=== PATIENT | male | born 1975 | race Caucasian/White ===

== ENCOUNTER 2017-07-17 05:21 | Emergency (ER) | payer MEDICAID ==
[2017-07-17] MEDS ORDERED: Sodium Chloride 0.9% 10 ML Syringe FLUSH PRN (06:06)
[2017-07-17] MEDS ORDERED: Ketorolac 30 MG/ML SDV IVPUSH ONE (06:07)
[2017-07-17] MEDS ORDERED: diphenhydrAMINE 50 MG/ML SDV IVPUSH ONE (06:08)
[2017-07-17] MEDS ORDERED: Prochlorperazine 10 MG/2 ML SDV IVPUSH ONE (06:08)
--- NOTE | 2017-07-17 06:11 | EDM.PDOC ---
ED HPI GENERAL MEDICAL PROBLEM - General Chief Complaint: Headache Stated Complaint: ILLNESS Time Seen by Provider: 07/17/17 05:59 Source of Information: Reports: Patient, RN Notes Reviewed History Limitations: Reports: No Limitations - History of Present Illness INITIAL COMMENTS - FREE TEXT/NARRATIVE: 41-year-old gentleman presents emergency department day complaint of headache, he states he has chronic daily headaches this particular one has been going on since April however it got worse over the last 24-48 hours he does have photophobia phonophobia describes the headache is obtained type around his head one side is greater than the other he does admit to having a fever yesterday however the fever broke this morning experiencing nausea no vomiting Headache Pain Score (Numeric/FACES): 7 - Related Data Allergies Allergy/AdvReac Type Severity Reaction Status Date / Time bee venom protein (honey bee) Allergy Anaphylactic Verified 07/17/17 05:43 Shock Penicillins Allergy Cannot Verified 07/17/17 05:43 Remember Home Meds: Home Meds Acetaminophen/Caffeine [Excedrin Tension Headache] 2 tab PO Q6HR 07/17/17 [ History] Amitriptyline [Elavil] 25 mg PO BEDTIME 07/17/17 [History] EPINEPHrine [Epinephrine] 0.3 ml SQ ASDIRECTED PRN 07/17/17 [History] Past Medical History HEENT History: Reports: Other (See Below) Other HEENT History: tonsil stones Gastrointestinal History: Reports: Irritable Bowel Syndrome Musculoskeletal History: Reports: Fracture Neurological History: Reports: Headaches, Chronic Other Endocrine/Metabolic History: hyper/hypoglycemic - Infectious Disease History Infectious Disease History: Reports: Chicken Pox - Past Surgical History Other HEENT Surgeries/Procedures: sinus surgery Social & Family History - Tobacco Use Smoking Status *Q: Never Smoker - Caffeine Use Caffeine Use: Reports: Tea - Recreational Drug Use Recreational Drug Use: No ED ROS GENERAL - Review of Systems Review Of Systems: See Below Constitutional: Reports: Fever HEENT: Reports: Ear Pain, Eye Pain. Denies: Vision Change Respiratory: Reports: No Symptoms Cardiovascular: Reports: No Symptoms GI/Abdominal: Reports: Nausea. Denies: Vomiting : Reports: No Symptoms Musculoskeletal: Reports: No Symptoms Skin: Reports: No Symptoms Neurological: Reports: Headache - Physical Exam Exam: See Below Exam Limited By: No Limitations General Appearance: Alert Eye Exam: Bilateral Eye: Normal Fundi, Normal Inspection, PERRL Ears: Normal External Exam Nose: Normal Inspection, Normal Mucosa, No Blood Throat/Mouth: Normal Inspection, Normal Lips, Normal Teeth, Normal Gums, Normal Oropharynx, Normal Voice, No Airway Compromise Head Exam: Atraumatic, Normocephalic Neck: Normal Inspection, Supple, Non-Tender, Full Range of Motion Respiratory/Chest: No Respiratory Distress, Lungs Clear, Normal Breath Sounds, No Accessory Muscle Use Cardiovascular: Regular Rate, Rhythm, No Murmur GI/Abdominal: Soft, Non-Tender Course - Vital Signs Last Recorded V/S: Last Vital Signs Temp 99.6 F 07/17/17 05:40 Pulse 110 H 07/17/17 05:40 Resp 18 07/17/17 05:40 BP 144/79 H 07/17/17 05:40 Pulse Ox 93 L 07/17/17 05:40 - Orders/Labs/Meds Orders: Active Orders 24 hr Category Date Time Status Peripheral IV Care [RC] . DIRECTED Care 07/17/17 06:07 Active Lactated Ringers [Ringers, Lactated] 1,000 ml Med 07/17/17 06:15 Active IV .BOLUS Sodium Chloride 0.9% [Saline Flush] Med 07/17/17 06:06 Active 10 ml FLUSH ASDIRECTED PRN Peripheral IV Insertion Adult [OM.PC] Urgent Oth 07/17/17 06:06 Ordered Medication Orders Lactated Ringer's (Ringers, Lactated) 1,000 mls @ 999 mls/hr IV .BOLUS ZAINAB Last Admin: 07/17/17 06:21 Dose: 999 mls/hr Sodium Chloride (Saline Flush) 10 ml FLUSH ASDIRECTED PRN PRN Reason: Keep Vein Open Labs: Laboratory Tests 07/17/17 07/17/17 Range/Units 06:19 06:19 WBC 10.7 (4.5-11.0) K/uL RBC 5.19 (4.30-5.90) M/uL Hgb 14.8 (12.0-15.0) g/dL Hct 43.7 (40.0-54.0) % MCV 84 (80-98) fL MCH 29 (27-31) pg MCHC 34 (32-36) % Plt Count 249 (150-400) K/uL Neut % (Auto) 86 H (36-66) % Lymph % (Auto) 8 L (24-44) % [place] % (Auto) 6 (2-6) % Eos % (Auto) 0 L (2-4) % Baso % (Auto) 0 (0-1) % Sodium 139 L (140-148) mmol/L Potassium 3.8 (3.6-5.2) mmol/L Chloride 99 L (100-108) mmol/L Carbon Dioxide 31 (21-32) mmol/L Anion Gap 12.8 (5.0-14.0) mmol/L BUN 10 (7-18) mg/dL Creatinine 1.2 (0.8-1.3) mg/dL Est Cr Clr Drug Dosing 86.28 mL/min Estimated GFR (MDRD) > 60 (>60) Glucose 102 (74-106) mg/dL Calcium 9.3 (8.5-10.1) mg/dL C-Reactive Protein 5.75 H (0.0-0.3) mg/dL Meds: Medications Generic Name Dose Route Start Last Admin Trade Name Freq PRN Reason Stop Dose Admin Lactated Ringer's 1,000 mls @ 999 mls/hr 07/17/17 06:15 07/17/17 06:21 Ringers, Lactated IV 999 mls/hr .BOLUS ZAINAB Administration Sodium Chloride 10 ml 07/17/17 06:06 Saline Flush FLUSH ASDIRECTED PRN Keep Vein Open Discontinued Medications Generic Name Dose Route Start Last Admin Trade Name Freq PRN Reason Stop Dose Admin Diphenhydramine HCl 25 mg 07/17/17 06:08 07/17/17 06:27 Benadryl IVPUSH 07/17/17 06:09 25 mg ONETIME ONE Administration Ketorolac Tromethamine 30 mg 07/17/17 06:07 07/17/17 06:25 Toradol IVPUSH 07/17/17 06:08 30 mg ONETIME ONE Administration Prochlorperazine Edisylate 5 mg 07/17/17 06:08 07/17/17 06:22 Compazine IVPUSH 07/17/17 06:09 5 mg ONETIME ONE Administration Departure - Departure Time of Disposition: 07:02 Disposition: Home, Self-Care 01 Condition: Good Clinical Impression: Head ache Qualifiers: Headache type: unspecified Headache chronicity pattern: chronic headache - Discharge Information Referrals: PCP,None [Primary Care Provider] - Forms: ED Department Discharge Additional Instructions: Please follow-up with your primary care recommend consultation with neurology, call return to the emergency department worsening of symptoms - My Orders Last 24 Hours: My Active Orders 07/17/17 06:06 Sodium Chloride 0.9% [Saline Flush] 10 ml FLUSH ASDIRECTED PRN Peripheral IV Insertion Adult [OM.PC] Urgent 07/17/17 06:07 Peripheral IV Care [RC] . DIRECTED 07/17/17 06:15 Lactated Ringers [Ringers, Lactated] 1,000 ml IV .BOLUS - Assessment/Plan Last 24 Hours: My Active Orders 07/17/17 06:06 Sodium Chloride 0.9% [Saline Flush] 10 ml FLUSH ASDIRECTED PRN Peripheral IV Insertion Adult [OM.PC] Urgent 07/17/17 06:07 Peripheral IV Care [RC] . DIRECTED 07/17/17 06:15 Lactated Ringers [Ringers, Lactated] 1,000 ml IV .BOLUS Plan: Assessment Acuity = chronic Site and laterality = daily headache Etiology = unclear etiology Manifestations = none Location of injury = Home Lab values = CBC, BMP unremarkable Plan He had good relief of his headache pain combination Toradol, Compazine, Benadryl and 1 L of lactated Ringer's he is going to follow-up with his primary care and consider consultation with neurology Patient was in agreement with the plan all questions were answered, they were instructed to return to the emergency department or call for worsening symptoms. This note was dictated using [employer] voice recognition software please call with any questions.
[2017-07-17] MEDS ORDERED: Lactated Ringers 1,000 ML IV SCH (06:15)
[2017-07-17 07:12] VITALS: BP 129/75
== END 2017-07-17 07:13 | disposition home or self-care (01) ==
LOC: JP.ED 05:21
DX: R51 Headache (principal); Z88.0 Allergy status to penicillin; Z91.030 Bee allergy status
CPT/HCPCS: 36415; 80048; 85025; 86140; 96361; 96374; 96375; 99284; J0780; J1200; J1885; J7120

== ENCOUNTER 2017-07-19 10:26 | Emergency (ER) | payer MEDICAID ==
--- NOTE | 2017-07-19 11:03 | EDM.PDOC ---
ED HPI GENERAL MEDICAL PROBLEM - General Chief Complaint: Neurological Problem Stated Complaint: LEFT SIDE OF FACE IN NUMB Time Seen by Provider: 07/19/17 10:50 Source of Information: Reports: Patient, Family, Old Records, RN History Limitations: Reports: No Limitations - History of Present Illness INITIAL COMMENTS - FREE TEXT/NARRATIVE: 41 yo male here after a couple of syncopal spells today. He has had some diarrhea for the past 3 days as have some other family members. This morning while sitting in a chair he passed out for about 30 seconds. He had some warning before hand. He could feel his heart pounding in his head and things got distant before-hand. After he awoke he felt very relaxed. No chest pain or nausea. Has a hx of frequent HARP's, but does not have one today. No hx of CAD or seizures. No new meds or dose changes. Onset: Today Onset Date: 07/19/17 Duration: Hour(s):, Improving Location: Reports: Generalized Quality: Reports: Other (no pain) Severity: Moderate Improves with: Reports: Rest (lying supine) Worsens with: Reports: None Context: Reports: Other (? related to recent diarrhea vs. HARP's that are worse over the past month) Associated Symptoms: Reports: Headaches (not today.), Syncope. Denies: Confusion, Chest Pain, Cough, Diaphoresis, Fever/Chills, Nausea/Vomiting, Seizure, Shortness of Breath Treatments [employer]: Reports: Other (see below) (none) - Related Data Allergies Allergy/AdvReac Type Severity Reaction Status Date / Time bee venom protein (honey bee) Allergy Anaphylactic Verified 07/19/17 10:36 Shock Penicillins Allergy Cannot Verified 07/19/17 10:36 Remember Home Meds: Home Meds Acetaminophen/Caffeine [Excedrin Tension Headache] 2 tab PO Q6HR 07/17/17 [ History] Amitriptyline [Elavil] 25 mg PO BEDTIME 07/17/17 [History] EPINEPHrine [Epinephrine] 0.3 ml SQ ASDIRECTED PRN 07/17/17 [History] Past Medical History HEENT History: Reports: Other (See Below) Other HEENT History: tonsil stones Gastrointestinal History: Reports: Irritable Bowel Syndrome Musculoskeletal History: Reports: Fracture Neurological History: Reports: Headaches, Chronic Other Endocrine/Metabolic History: hyper/hypoglycemic - Infectious Disease History Infectious Disease History: Reports: Chicken Pox - Past Surgical History Other HEENT Surgeries/Procedures: sinus surgery Social & Family History - Tobacco Use Smoking Status *Q: Unknown Ever Smoked - Caffeine Use Caffeine Use: Reports: Tea - Recreational Drug Use Recreational Drug Use: No ED ROS GENERAL - Review of Systems Review Of Systems: See Below Constitutional: Reports: No Symptoms HEENT: Reports: No Symptoms Respiratory: Reports: No Symptoms Cardiovascular: Reports: Syncope. Denies: Chest Pain, Dyspnea on Exertion Endocrine: Reports: No Symptoms GI/Abdominal: Reports: Diarrhea (x 3 days). Denies: Abdominal Pain, Black Stool , Bloody Stool, Constipation, Difficulty Swallowing, Distension, Flatus, Hematemesis, Hematochezia, Melena, Nausea, Stool Incontinence, Vomiting : Reports: No Symptoms Musculoskeletal: Reports: No Symptoms Skin: Reports: No Symptoms Neurological: Reports: Headache (not today, most days however), Numbness (L face and tongue, getting better), Syncope (this morning at home, later in the car driving here.). Denies: Dizziness, Seizure Psychiatric: Reports: No Symptoms ED EXAM, NEURO - Physical Exam Exam: See Below Exam Limited By: No Limitations General Appearance: Alert, WD/WN, No Apparent Distress Eye Exam: Bilateral Eye: EOMI, Normal Inspection, PERRL Ears: Normal External Exam, Normal Canal, Hearing Grossly Normal, Normal TMs Nose: Normal Inspection, Normal Mucosa, No Blood Throat/Mouth: Normal Inspection, Normal Lips, Normal Oropharynx, Normal Voice, No Airway Compromise Head Exam: Atraumatic, Normocephalic Neck: Normal Inspection, Supple Respiratory/Chest: No Respiratory Distress, Lungs Clear, Normal Breath Sounds, No Accessory Muscle Use Cardiovascular: Regular Rate, Rhythm, No Edema GI/Abdominal: Normal Bowel Sounds, Soft, Non-Tender, No Distention Neurological: Alert, Normal Mood/Affect, CN II-XII Intact, No Motor/Sensory Deficits, Oriented x 3 Back Exam: Normal Inspection. No: CVA Tenderness (R), CVA Tenderness (L) Extremities: Normal Inspection, Normal Range of Motion, Non-Tender, No Pedal Edema Psychiatric: Normal Affect, Normal Mood Skin Exam: Warm, Dry, Intact, Normal Color, No Rash EKG INTERPRETATION EKG Date: 07/19/17 Time: 10:50 Rhythm: NSR Rate (Beats/Min): 72 [place]: Normal P-Wave: Present QRS: Normal ST-T: Normal QT: Normal Comparison: NA - No Prior EKG Course - Vital Signs Text/Narrative:: Orthostatic vitals-normal Last Recorded V/S: Last Vital Signs Temp 35.2 C 07/19/17 11:00 Pulse 77 07/19/17 11:00 Resp 18 07/19/17 11:00 BP 141/79 H 07/19/17 11:00 Pulse Ox 98 07/19/17 11:00 Orthostatic Blood Pressure [ 163/108 Standing] Orthostatic Blood Pressure [ 131/89 Sitting] Orthostatic Blood Pressure [ 139/86 Supine] - Orders/Labs/Meds Orders: Active Orders 24 hr Category Date Time Status Cardiac Monitoring [RC] .As Directed Care 07/19/17 10:46 Active EKG Documentation Completion [RC] ASDIRECTED Care 07/19/17 10:46 Active Orthostatic Vital Signs [RC] ASDIRECTED Care 07/19/17 10:47 Active POC Labs [RC] ASDIRECTED Care 07/19/17 10:46 Active EKG 12 Lead [EK] Routine Ther 07/19/17 10:46 Ordered Labs: Laboratory Tests 07/19/17 Range/Units 11:25 Sodium 142 (140-148) mmol/L Potassium 4.0 (3.6-5.2) mmol/L Chloride 103 (100-108) mmol/L Carbon Dioxide 31 (21-32) mmol/L Anion Gap 7.8 (5.0-14.0) mmol/L BUN 10 (7-18) mg/dL Creatinine 1.1 (0.8-1.3) mg/dL Est Cr Clr Drug Dosing 94.13 mL/min Estimated GFR (MDRD) > 60 (>60) Glucose 107 H (74-106) mg/dL Calcium 9.4 (8.5-10.1) mg/dL Meds: Medications Discontinued Medications Generic Name Dose Route Start Last Admin Trade Name Freq PRN Reason Stop Dose Admin Acetaminophen 1,000 mg 07/19/17 11:58 Tylenol Extra Strength PO 07/19/17 11:59 ONETIME ONE - Radiology Interpretation Free Text/Narrative:: Negative head CT CT Results Date: 07/19/17 CT Results Time: 11:48 Departure - Departure Time of Disposition: 12:01 Disposition: Home, Self-Care 01 Condition: Fair Clinical Impression: Syncope Qualifiers: Syncope type: unspecified Qualified Code(s): R55 - Syncope and collapse - Discharge Information Referrals: PCP,None [Primary Care Provider] - Forms: ED Department Discharge Additional Instructions: Keep your appt today with your primary for today. No driving today. - My Orders Last 24 Hours: My Active Orders 07/19/17 10:46 Cardiac Monitoring [RC] .As Directed EKG Documentation Completion [RC] ASDIRECTED POC Labs [RC] ASDIRECTED EKG 12 Lead [EK] Routine 07/19/17 10:47 Orthostatic Vital Signs [RC] ASDIRECTED - Assessment/Plan Last 24 Hours: My Active Orders 07/19/17 10:46 Cardiac Monitoring [RC] .As Directed EKG Documentation Completion [RC] ASDIRECTED POC Labs [RC] ASDIRECTED EKG 12 Lead [EK] Routine 07/19/17 10:47 Orthostatic Vital Signs [RC] ASDIRECTED
--- NOTE | 2017-07-19 11:49 | CT ---
Head wo Cont HISTORY: Worsening headaches. COMPARISON: April 2010. TECHNIQUE: Noncontrast enhanced axial cuts were obtained of the brain. Total DLP: 646. FINDINGS:There is no cerebral or subdural hemorrhage. There is no mass effect or edema. The ventricle s and CSF spaces are appropriate for age. No space occupying lesions are demonstrated. The orbital st ructures are unremarkable. The sinuses demonstrate normal aeration. IMPRESSION: Stable negative exam.
[2017-07-19] MEDS ORDERED: Acetaminophen 500 MG Tab PO ONE (11:58)
[2017-07-19 12:20] VITALS: BP 119/78
== END 2017-07-19 12:44 | disposition home or self-care (01) ==
LOC: JP.ED 10:26
DX: R55 Syncope and collapse (principal); Z91.030 Bee allergy status; Z88.0 Allergy status to penicillin
CPT/HCPCS: 36415; 70450; 80048; 82962; 93005; 99285; A9270

== ENCOUNTER 2018-04-17 09:24 | Day surgery (SDC) | payer MEDICAID ==
[~2018-04-17 09:24] MED LIST: Bupivacaine 0.5% 50 ML MDV ONE; Lidocaine 0.5% 50 ML SDV ONE; Lidocaine 1% with EPINEPHrine 1:100,000 50 ML MDV ONE
[2018-04-17] MEDS ORDERED: Dextrose 5%-Lactated Ringers 1,000 ML IV SCH (10:00)
[2018-04-17] MEDS ORDERED: Propofol 200 MG/20 ML SDV ONE ×2 (10:25→10:27)
[2018-04-17] MEDS ORDERED: fentaNYL 100 MCG/2 ML SDV ONE (10:25)
[2018-04-17] MEDS ORDERED: Midazolam 1 MG/ML 2 ML SDV ONE (10:26)
[2018-04-17] MEDS ORDERED: Clindamycin Phosphate 900 MG in Sodium Chloride 0.9% 100 ML IV ONE (11:00)
[2018-04-17] MEDS ORDERED: Acetaminophen/HYDROcodone 325-5 MG Tab PO PRN (12:16)
[2018-04-17 12:52] VITALS: BP 112/71
--- NOTE | 2018-04-18 07:37 | OR ---
DATE OF PROCEDURE: 04/17/2018 PREOPERATIVE DIAGNOSIS: Incarcerated umbilical hernia. POSTOPERATIVE DIAGNOSIS: Incarcerated with fat umbilical hernia. PROCEDURE: Repair of umbilical hernia with a 6.4 cm in diameter Ventralex mesh patch with straps. SURGEON: Brian Champion MD ANESTHESIA: IV anesthesia with monitored anesthesia care. INDICATION: This 42-year-old white male has an umbilical hernia, and I cannot reduce it. He denies signs or symptoms suggestive of bowel involvement. I counseled him for repair of this, probably with mesh, including risks, alternatives, and he gave his informed consent to proceed. DESCRIPTION OF PROCEDURE: The patient was placed supine on the operating room table. IV anesthesia was administered by the Anesthesia Service. His abdomen was prepped and draped in the usual sterile fashion. Time-out was held. Lidocaine 1% with epinephrine in a 50:50 mix with 0.5% Marcaine was infiltrated about the umbilicus. An infraumbilical semicircular incision was made. This was carried deep to the fascia. The umbilicus was then encircled and the umbilical skin was divided from the underlying hernia sac. We encountered fat, which we could not reduce back into the abdominal cavity. The fat was excised and sent to the laboratory. We obtained a 6.4 cm in diameter Ventralex mesh patch with straps. This was placed down underneath the fascia. The straps were pulled up bringing the mesh nicely against the posterior aspect of the anterior abdominal wall. The straps were cut to appropriate length and anchored with 2-0 Vicryl to the anterior fascia. The fascia was closed over the mesh with a running stitch of 2-0 Vicryl. The stitch was also used to anchor the umbilical skin to the underlying fascia. 4-0 Vicryl using a subcuticular stitch was placed to approximate the skin. Dermabond was applied. He tolerated the procedure well and was brought to the recovery room in good condition. Brian Champion MD /[id number]
== END 2018-04-17 13:20 | disposition home or self-care (01) ==
LOC: JP.SDS 09:24
PROVIDERS: ATTEND Surgery
DX: K42.0 Umbilical hernia with obstruction, without gangrene (principal); Z88.0 Allergy status to penicillin; Z91.030 Bee allergy status
CPT/HCPCS: 49587; A9270; C1781; J2250; J2704; J3010; J3490; J7030; J7042; 88302

== ENCOUNTER 2019-03-29 07:34 | Emergency (ER) | payer MEDICAID ==
[2019-03-29 07:46] VITALS: BP 117/70; PULSE 66
--- NOTE | 2019-03-29 08:17 | EDM.PDOC ---
ED HPI GENERAL MEDICAL PROBLEM - General Chief Complaint: Respiratory Problem Stated Complaint: COLD BREATHING DIFFICULITIES Time Seen by Provider: 03/29/19 08:00 Source of Information: Reports: Patient History Limitations: Reports: No Limitations - History of Present Illness INITIAL COMMENTS - FREE TEXT/NARRATIVE: 43-year-old male, usually healthy has a worsening cold over the past week. He was seen in the clinic yesterday, given a nebulizer and placed on doxycycline. He coughed all night, feels worse today, has developed some facial pressure and can't hear out of his left ear. No fevers or chills. No nausea or vomiting. Onset: Gradual Duration: Day(s): (7 days) Associated Symptoms: Reports: Cough, Malaise, Shortness of Breath, Weakness - Related Data Allergies Allergy/AdvReac Type Severity Reaction Status Date / Time bee venom protein (honey bee) Allergy Severe Anaphylactic Verified 03/29/19 07: 46 Shock Penicillins Allergy Cannot Verified 03/29/19 07:46 Remember Home Meds: Home Meds EPINEPHrine [Epinephrine] 0.3 ml SQ ASDIRECTED PRN 07/17/17 [History] Fluticasone Propionate [Flonase] 2 spray NS DAILY PRN 04/13/18 [History] Gabapentin [Neurontin] 100 mg PO DAILY 04/13/18 [History] SUMAtriptan 100 mg PO ONETIME PRN 04/13/18 [History] Acetaminophen [Tylenol Extra Strength] 1,000 mg PO BID PRN 04/17/18 [History] Melatonin 5 mg PO BEDTIME PRN 04/17/18 [History] Baclofen 10 mg PO TID 08/01/18 [History] Guaifenesin/Pseudoephedrne HCl [Mucinex D ER 600-60 mg Tablet] 1 tab PO Q12H 04/09 [History] Past Medical History HEENT History: Reports: Allergic Rhinitis, Other (See Below) Other HEENT History: tonsil stones, broken nose as child Respiratory History: Reports: Other (See Below) Other Respiratory History: recurrent bronchitis as child Gastrointestinal History: Reports: Irritable Bowel Syndrome Musculoskeletal History: Reports: Fracture, Other (See Below) Other Musculoskeletal History: fractured clavicle Neurological History: Reports: Headaches, Chronic, Migraines Other Neuro History: getting botox injections Other Endocrine/Metabolic History: hyper/hypoglycemic - Infectious Disease History Infectious Disease History: Reports: Chicken Pox - Past Surgical History Other HEENT Surgeries/Procedures: sinus surgery Social & Family History - Tobacco Use Smoking Status *Q: Never Smoker - Caffeine Use Caffeine Use: Reports: Soda, Tea - Recreational Drug Use Recreational Drug Use: No ED ROS GENERAL - Review of Systems Review Of Systems: See Below Constitutional: Reports: Malaise. Denies: Fever, Chills HEENT: Reports: Sinus Problem (Pressure in his sinuses), Other (Decreased hearing from the left ear) Respiratory: Reports: Shortness of Breath, Wheezing, Cough. Denies: Sputum Cardiovascular: Reports: No Symptoms GI/Abdominal: Denies: Nausea, Vomiting Skin: Reports: No Symptoms Neurological: Reports: Weakness, Other (Trouble sleeping). Denies: Headache ED EXAM, GENERAL - Physical Exam Exam: See Below Exam Limited By: No Limitations General Appearance: Alert, No Apparent Distress Eye Exam: Bilateral Eye: Normal Inspection Ears: Other (The right tympanic membrane is normal, the left has fluid behind it but is not inflamed or reddened) Throat/Mouth: Normal Inspection Head: Atraumatic Respiratory/Chest: No Respiratory Distress, Wheezing (A few scattered expiratory wheezes and rhonchi are heard especially with coughing) Neurological: Alert, Oriented Psychiatric: Flat Affect Skin Exam: Warm, Dry Course - Vital Signs Last Recorded V/S: Last Vital Signs Temp 97.0 F 03/29/19 07:45 Pulse 66 03/29/19 07:45 Resp 22 H 03/29/19 07:45 BP 117/70 03/29/19 07:45 Pulse Ox 100 03/29/19 07:45 - Re-Assessments/Exams Free Text/Narrative Re-Assessment/Exam: 03/29/19 08:15 Explained to the patient that this very likely is viral. He can continue the doxycycline he was prescribed, but we will add 60 mg of prednisone daily with his first meal and some benzonatate [place] for cough suppression. Increase activity as tolerated. Return if worsening. Departure - Departure Time of Disposition: 08:27 Disposition: Home, Self-Care 01 Condition: Good Clinical Impression: Bronchitis Left serous otitis media Qualifiers: Chronicity: acute Recurrence: non-recurrent Qualified Code(s): H65.02 - Acute serous otitis media, left ear - Discharge Information Instructions: Acute Bronchitis, Adult, [id number] Referrals: PCP,None [Primary Care Provider] - Forms: ED Department Discharge Care Plan Goals: Continue your current medications, and add 60 mg or 6 pills of prednisone daily for 5 consecutive days with your first meal. Use the benzonatate for cough suppression as directed if needed. Rest and fluids are important, increase activity as tolerated and consider rechecking in 2-3 days if not improving. You can always return sooner if worsening such as increased shortness of breath or persistent fever.
== END 2019-03-29 08:27 | disposition home or self-care (01) ==
LOC: JP.ED 07:34
DX: J40 Bronchitis, not specified as acute or chronic (principal); H65.02 Acute serous otitis media, left ear; Z88.0 Allergy status to penicillin; Z91.030 Bee allergy status; Z79.891 Long term (current) use of opiate analgesic
CPT/HCPCS: 99284

== ENCOUNTER 2020-10-23 07:27 | Emergency (ER) | payer MEDICAID ==
[2020-10-23] MEDS ORDERED: diphenhydrAMINE 50 MG/ML SDV IVPUSH ONE (07:41)
[2020-10-23] MEDS ORDERED: Sodium Chloride 0.9% 10 ML Syringe FLUSH PRN (07:41)
[2020-10-23] MEDS ORDERED: methylPREDNISolone Sodium Succinate 125 MG/2 ML SDV IV ONE (07:41)
[2020-10-23] MEDS ORDERED: EPINEPHrine 1 MG/ML SDV IM ONE ×2 (07:41→08:01)
--- NOTE | 2020-10-23 07:44 | EDM.PDOC ---
ED HPI GENERAL MEDICAL PROBLEM - General Chief Complaint: Allergic Reaction Stated Complaint: TROUBLE BREATHING Time Seen by Provider: 10/23/20 07:41 Source of Information: Reports: Patient, Family, RN Notes Reviewed History Limitations: Reports: No Limitations - History of Present Illness INITIAL COMMENTS - FREE TEXT/NARRATIVE: 45-year-old gentleman presents emergency department today complaint of difficulty breathing with throat swelling he does have a known allergy to bee stings carries an empty pen however he is not sure what happened he does have some new vitamins that he has been taking for about a week otherwise no new medications. - Related Data Allergies Allergy/AdvReac Type Severity Reaction Status Date / Time bee venom protein (honey bee) Allergy Severe Anaphylactic Verified 10/23/20 07:38 Shock Penicillins Allergy Cannot Verified 10/23/20 07:38 Remember Home Meds: Home Meds EPINEPHrine [Epinephrine] 0.3 ml SQ ASDIRECTED PRN 07/17/17 [History] SUMAtriptan 100 mg PO ONETIME PRN 04/13/18 [History] Acetaminophen [Tylenol Extra Strength] 1,000 mg PO BID PRN 04/17/18 [History] Melatonin 10 mg PO BEDTIME PRN 04/17/18 [History] *Bpc-157 1 dose PO BID 10/23/20 [History] *Thymosin Beta 4 (Tb-500) 1 dose PO BID 10/23/20 [History] Ascorbic Acid [Vitamin C] 2,000 mg PO DAILY 10/23/20 [History] Cholecalciferol (Vitamin D3) [Vitamin D] 10,000 mg PO DAILY 10/23/20 [History] Clobetasol [Clobetasol Propionate 0.05%] 30 gm TOP BID 10/23/20 [History] Collagen, Hydrolysate (Bovine) [Collagen Hydrolysate] 1 dose PO DAILY 10/23/20 [History] Cyanocobalamin (Vitamin B-12) [Vitamin B-12] 1,000 mg PO DAILY 10/23/20 [History] EPINEPHrine [Epipen] 0.3 mg IM ONETIME PRN #1 ml 10/23/20 [Rx] Magnesium 250 mg PO DAILY 10/23/20 [History] Wildwood-3/DHA/Epa/Fish Oil [Wildwood-3 Fish Oil 1,000 MG Sfgl] 1,000 mg PO DAILY 10/23/20 [History] Omeprazole 20 mg PO DAILY 10/23/20 [History] Rizatriptan Benzoate [Rizatriptan] 10 mg PO ASDIRECTED PRN 10/23/20 [History] Turmeric Root Extract [Turmeric] 1,000 mg PO DAILY 10/23/20 [History] methocarbamoL [Methocarbamol] 500 mg PO QID PRN 10/23/20 [History] Past Medical History HEENT History: Reports: Allergic Rhinitis, Other (See Below) Other HEENT History: tonsil stones, broken nose as child Respiratory History: Reports: Other (See Below) Other Respiratory History: recurrent bronchitis as child Gastrointestinal History: Reports: Irritable Bowel Syndrome Musculoskeletal History: Reports: Fracture, Other (See Below) Other Musculoskeletal History: fractured clavicle Neurological History: Reports: Headaches, Chronic, Migraines Other Neuro History: getting botox injections Other Endocrine/Metabolic History: hyper/hypoglycemic Immunologic History: Reports: Other (See Below) (Anaphylaxis to bee stings) - Infectious Disease History Infectious Disease History: Reports: Chicken Pox - Past Surgical History Other HEENT Surgeries/Procedures: sinus surgery Social & Family History - Tobacco Use Tobacco Use Status *Q: Never Tobacco User - Caffeine Use Caffeine Use: Reports: Soda - Recreational Drug Use Recreational Drug Use: No ED ROS ALLERGIC REACTION - Review of Systems Review Of Systems: See Below Constitutional: Reports: No Symptoms HEENT: Reports: Throat Pain, Throat Swelling Respiratory: Reports: Shortness of Breath Cardiovascular: Reports: Dyspnea on Exertion ED EXAM GENERAL NO PERIP PULSE - Physical Exam Exam: See Below Exam Limited By: No Limitations General Appearance: Alert, Moderate Distress Throat/Mouth: Normal Lips, Normal Teeth, Inflammation, Other (Uvula is markedly edematous) Respiratory/Chest: Decreased Breath Sounds, Rhonchi, Wheezing Cardiovascular: Regular Rate, Rhythm, No Murmur GI/Abdominal: Soft, Non-Tender Course - Vital Signs Last Recorded V/S: Last Vital Signs Temp 97.8 F 10/23/20 07:35 Pulse 85 10/23/20 10:29 Resp 16 10/23/20 10:29 BP 117/62 10/23/20 10:29 Pulse Ox 97 10/23/20 10:29 - Orders/Labs/Meds Orders: Active Orders 24 hr Category Date Time Status Peripheral IV Care [RC] . DIRECTED Care 10/23/20 07:42 Active RT Aerosol Therapy [RC] ASDIRECTED Care 10/23/20 08:15 Active Sodium Chloride 0.9% [Saline Flush] Med 10/23/20 07:41 Active 10 ml FLUSH ASDIRECTED PRN Peripheral IV Insertion Adult [OM.PC] Urgent Oth 10/23/20 07:41 Ordered Medication Orders Sodium Chloride (Saline Flush) 10 ml FLUSH ASDIRECTED PRN PRN Reason: Keep Vein Open Last Admin: 10/23/20 07:47 Dose: 10 ml Documented by: GABRIELLA Labs: Laboratory Tests 10/23/20 10/23/20 Range/Units 08:14 08:14 WBC 10.3 (4.5-11.0) K/uL RBC 5.13 (4.30-5.90) M/uL Hgb 14.3 (12.0-15.0) g/dL Hct 43.4 (40.0-54.0) % MCV 85 (80-98) fL MCH 28 (27-31) pg MCHC 33 (32-36) % Plt Count 399 (150-400) K/uL Neut % (Auto) 52 (36-66) % Lymph % (Auto) 38 (24-44) % Toole % (Auto) 7 H (2-6) % Eos % (Auto) 3 (2-4) % Baso % (Auto) 1 (0-1) % ESR 16 (0-20) mm/hr Sodium 144 (140-148) mmol/L Potassium 2.7 L* (3.6-5.2) mmol/L Chloride 103 (100-108) mmol/L Carbon Dioxide 26 (21-32) mmol/L Anion Gap 17.7 H (5.0-14.0) mmol/L BUN 10 (7-18) mg/dL Creatinine 1.1 (0.8-1.3) mg/dL Est Cr Clr Drug Dosing 90.32 mL/min Estimated GFR (MDRD) > 60 (>60) Glucose 140 H (74-106) mg/dL Calcium 9.5 (8.5-10.1) mg/dL TSH, Ultra Sensitive 2.789 (0.358-3.740) uIU/mL Meds: Medications Generic Name Dose Route Start Last Admin Trade Name Freq PRN Reason Stop Dose Admin Sodium Chloride 10 ml 10/23/20 07:41 10/23/20 07:47 Saline Flush FLUSH 10 ml ASDIRECTED PRN Administration Keep Vein Open Discontinued Medications Generic Name Dose Route Start Last Admin Trade Name Giacomo PRN Reason Stop Dose Admin Albuterol 2.5 mg 10/23/20 08:15 10/23/20 08:17 Proventil Neb Soln NEB 10/23/20 08:16 2.5 mg ONETIME ONE Administration Diphenhydramine HCl 50 mg 10/23/20 07:41 10/23/20 07:35 Benadryl IVPUSH 10/23/20 07:42 50 mg ONETIME ONE Administration Epinephrine HCl 0.4 mg 10/23/20 07:41 10/23/20 07:45 Adrenalin IM 10/23/20 07:42 0.4 mg ONETIME ONE Administration Epinephrine HCl 0.4 mg 10/23/20 08:01 10/23/20 08:04 Adrenalin IM 10/23/20 08:02 0.4 mg ONETIME ONE Administration Famotidine 20 mg 10/23/20 07:46 10/23/20 07:50 Pepcid IVPUSH 10/23/20 07:47 20 mg ONETIME ONE Administration Lactated Ringer's 1,000 mls @ 999 mls/hr 10/23/20 08:57 10/23/20 09:32 Ringers, Lactated IV 10/23/20 09:57 999 mls/hr BOLUS ONE Administration Potassium Chloride 20 meq/ 100 mls @ 50 mls/hr 10/23/20 08:57 10/23/20 09:32 Premix IV 10/23/20 10:56 50 mls/hr ONETIME ONE Administration Methylprednisolone Sodium Succinate 125 mg 10/23/20 07:41 10/23/20 07:36 Solu-Medrol IV 10/23/20 07:42 125 mg ONETIME ONE Administration Potassium Chloride 40 meq 10/23/20 08:57 10/23/20 09:34 Klor-Con M20 PO 10/23/20 08:58 40 meq ONETIME ONE Administration Departure - Departure Time of Disposition: 12:01 Disposition: Home, Self-Care 01 Condition: Good Clinical Impression: Anaphylaxis Qualifiers: Encounter type: initial encounter Qualified Code(s): T78.2XXA - Anaphylactic shock, unspecified, initial encounter - Discharge Information Instructions: Anaphylactic Reaction, Adult, [id number], Anaphylactic Reaction, Adult Referrals: PCP,None [Primary Care Provider] - Forms: ED Department Discharge Additional Instructions: Your EpiPen has been sent to [facility] pharmacy, please followup with your primary care provider in 2-3 days if not better, please call return to the emergency department with worsening of symptoms. Sepsis Event Note (ED) - Evaluation Sepsis Screening Result: No Definite Risk - Focused Exam Vital Signs: Vital Signs Temp Pulse Resp BP Pulse Ox 10/23/20 10:29 85 16 117/62 97 10/23/20 09:49 86 13 120/64 98 10/23/20 09:09 85 16 130/62 100 10/23/20 08:29 97 15 152/74 H 100 10/23/20 08:09 86 16 148/71 H 99 10/23/20 07:49 87 14 135/67 99 10/23/20 07:35 97.8 F 106 H 22 H 136/84 100 - My Orders Last 24 Hours: My Active Orders 10/23/20 07:41 Sodium Chloride 0.9% [Saline Flush] 10 ml FLUSH ASDIRECTED PRN Peripheral IV Insertion Adult [OM.PC] Urgent 10/23/20 07:42 Peripheral IV Care [RC] . DIRECTED 10/23/20 08:15 RT Aerosol Therapy [RC] ASDIRECTED - Assessment/Plan Last 24 Hours: My Active Orders 10/23/20 07:41 Sodium Chloride 0.9% [Saline Flush] 10 ml FLUSH ASDIRECTED PRN Peripheral IV Insertion Adult [OM.PC] Urgent 10/23/20 07:42 Peripheral IV Care [RC] . DIRECTED 10/23/20 08:15 RT Aerosol Therapy [RC] ASDIRECTED Plan: Assessment Acuity = acute Site and laterality = anaphylactic reaction Etiology = unknown Manifestations = none Location of injury = Home Lab values = CBC unremarkable B EARLY CHILDHOOD TEACHER ASSISTANT reveals a potassium low at 2.7 consistent with hypokalemia Plan Potassium was replaced with both IV fluids and oral potassium he did require 2 doses of epinephrine to get some improvement his breathing remained clear however the uvula is slightly swollen still he has received steroids as well and follow-up with his primary care in the next 2 to 3 days for reevaluation, prescription for epinephrine EpiPen provided This note was dictated using [employer] voice recognition software please call with any questions on syntax or grammar.
[2020-10-23] MEDS ORDERED: Famotidine 20 MG/2 ML SDV IVPUSH ONE (07:46)
[2020-10-23] MEDS ORDERED: Albuterol 0.083% 2.5 MG/3 ML Neb Soln NEB ONE (08:15)
[2020-10-23] MEDS ORDERED: Potassium Chloride 20 MEQ Tab.ER PO ONE (08:57)
[2020-10-23] MEDS ORDERED: Lactated Ringers 1,000 ML IV ONE (08:57)
[2020-10-23] MEDS ORDERED: Potassium Chloride 20 MEQ in Premix Bag 1 BAG IV ONE (08:57)
[2020-10-23 11:17] VITALS: BP 117/62; PULSE 85
== END 2020-10-23 12:27 | disposition home or self-care (01) ==
LOC: JP.ED 07:27
DX: T78.2XXA Anaphylactic shock, unspecified, initial encounter (principal); Z91.030 Bee allergy status; Z88.0 Allergy status to penicillin; Z79.899 Other long term (current) drug therapy
CPT/HCPCS: 36415; 80048; 84443; 85025; 85651; 94640; 96365; 96366; 96372; 96375; 99285; A9270; J0171; J1200; J2930; J3480; J3490; J7120; 99283

== ENCOUNTER 2020-12-22 06:02 | Inpatient (IN) | payer MEDICAID ==
[2020-12-22] MEDS ORDERED: Lactated Ringers 1,000 ML IV SCH (06:30)
[2020-12-22] MEDS ORDERED: Povidone-Iodine 10% Soln 118.25 ML Bottle ONE (06:48)
[2020-12-22] MEDS ORDERED: Nozin Nasal Sanitizer NASBOTH SCH (07:00)
[2020-12-22] MEDS ORDERED: ceFAZolin 2 GM in Sodium Chloride 0.9% 50 ML IV ONE (07:00)
[2020-12-22] MEDS ORDERED: ceFAZolin 2 GM in Premix Bag 1 BAG IV ONE (07:00)
[2020-12-22] MEDS ORDERED: Midazolam 1 MG/ML 2 ML SDV ONE (07:15)
[2020-12-22] MEDS ORDERED: Propofol 200 MG/20 ML SDV ONE ×3 (07:15→09:19)
[2020-12-22] MEDS ORDERED: fentaNYL 100 MCG/2 ML SDV ONE (07:15)
[2020-12-22] MEDS ORDERED: SODIUM CHLORIDE 0.9% IV ONE (07:45)
[2020-12-22] MEDS ORDERED: TRANEXAMIC ACID IV ONE (07:45)
[2020-12-22] MEDS ORDERED: Lactated Ringers 1,000 ML ONE (08:49)
[2020-12-22] MEDS ORDERED: Morphine 2 MG/ML SYRINGE SUBCUT PRN (09:38)
[2020-12-22] MEDS ORDERED: Magnesium Hydroxide 400 MG/5 ML Susp 30 ML Cup PO PRN (09:38)
[2020-12-22] MEDS ORDERED: Acetaminophen/HYDROcodone 325-5 MG Tab PO PRN (09:38)
[2020-12-22] MEDS ORDERED: Acetaminophen 325 MG Tab PO PRN (09:38)
[2020-12-22] MEDS ORDERED: Ondansetron 4 MG/2 ML SDV IVPUSH PRN (09:38)
[2020-12-22] MEDS ORDERED: Sennosides 8.6 MG Tab PO PRN (09:38)
[2020-12-22] MEDS ORDERED: ceFAZolin 1 GM in Sodium Chloride 0.9% 50 ML IV SCH (09:45)
[2020-12-22] MEDS: Ketorolac 30 MG/ML SDV IVPUSH SCH ×3 (10:40→22:16)
[2020-12-22] MEDS ORDERED: Morphine 2 MG/ML SYRINGE IVPUSH PRN (10:50)
[2020-12-22] MEDS ORDERED: Methocarbamol 500 MG Tab PO PRN ×2 (11:07→11:38)
[2020-12-22] MEDS ORDERED: Clobetasol 0.05% Crm 30 GM Tube TOP PRN (11:38)
[2020-12-22] MEDS ORDERED: Non-Formulary Medication 1 Each (Rizatriptan Benzoate [Rizatriptan] 10 MG Tablet) PO PRN (11:38)
[2020-12-22] MEDS ORDERED: EPINEPHRINE 0.3 MG/0.3 ML IM PRN (11:38)
[2020-12-22] MEDS ORDERED: AUTO INJCT IM PRN (11:38)
[2020-12-22] MEDS ORDERED: Non-Formulary Medication 1 Each (Melatonin [Melatonin] 5 MG Tablet) PO PRN (11:38)
[2020-12-22] MEDS ORDERED: EPINEPHrine 1 MG/ML SDV IM PRN (11:41)
[2020-12-22] MEDS ORDERED: Melatonin 3 MG Tab PO PRN (11:45)
[2020-12-22] MEDS ORDERED: Cyclobenzaprine 10 MG Tab PO PRN (11:54)
--- NOTE | 2020-12-22 13:43 | CR ---
Pelvis 1V or 2V CLINICAL HISTORY: Status post total hip arthroplasty FINDINGS: Patient has had recent placement of a total right hip arthroplasty. Components appear well seated. There is moderate osteoarthritis in the left hip Impression: Status post total right hip arthroplasty
[2020-12-22] MEDS: ceFAZolin 1 GM in Premix Bag 1 BAG IV SCH ×2 (16:43→23:10)
[2020-12-22] MEDS: Sodium Chloride 0.9% 1,000 ML IV SCH (16:44)
[2020-12-22] MEDS: Acetaminophen/oxyCODONE 325-5 MG Tab PO PRN ×2 (17:02→21:13)
[2020-12-22] MEDS: Nozin Nasal Sanitizer NASBOTH SCH (21:14)
[2020-12-23] MEDS: Sodium Chloride 0.9% 1,000 ML IV SCH ×2 (01:54→10:01)
[2020-12-23] MEDS: Acetaminophen/oxyCODONE 325-5 MG Tab PO PRN ×5 (02:12→21:28)
[2020-12-23] MEDS: Ketorolac 30 MG/ML SDV IVPUSH SCH ×4 (04:47→23:39)
[2020-12-23] MEDS: ceFAZolin 1 GM in Premix Bag 1 BAG IV SCH (07:47)
[2020-12-23] MEDS: Docusate Sodium 100 MG Cap PO SCH (09:26)
[2020-12-23] MEDS: Nozin Nasal Sanitizer NASBOTH SCH ×2 (09:26→21:27)
[2020-12-23] MEDS: Enoxaparin 30 MG/0.3 ML Syringe SUBCUT SCH (09:27)
--- NOTE | 2020-12-23 12:45 | PCM.SURGPN ---
- General Info Date of Service: 12/23/20 Date of Surgery/Procedure: 12/22/20 POD#: 1 Post-Op Diagnosis: right hip osteoarthritis and femoral acetabular impingement Functional Status: Reports: Tolerating Diet, Ambulating (with FWW ), Urinating - Review of Systems General: Reports: No Symptoms HEENT: Reports: No Symptoms Pulmonary: Reports: No Symptoms Cardiovascular: Reports: No Symptoms Gastrointestinal: Reports: No Symptoms Genitourinary: Reports: No Symptoms Musculoskeletal: Reports: Leg Pain (right ), Joint Pain (right hip) Skin: Reports: No Symptoms Neurological: Reports: No Symptoms Psychiatric: Reports: No Symptoms - Patient Data Vitals - Most Recent: Last Vital Signs Temp 96.3 F L 12/23/20 07:00 Pulse 70 12/23/20 07:00 Resp 18 12/23/20 07:00 BP 99/53 L 12/23/20 07:00 Pulse Ox 96 12/23/20 07:00 Weight - Most Recent: 180 lb I&O - Last 24 Hours: Intake & Output 12/22/20 12/23/20 12/23/20 22:59 06:59 14:59 Intake Total 794 2155 300 Output Total 200 350 Balance 594 1805 300 Lab Results Last 24 Hrs: Laboratory Results - last 24 hr 12/23/20 Range/Units 05:30 WBC 8.6 (4.5-11.0) K/uL RBC 3.80 L (4.30-5.90) M/uL Hgb 10.8 L D (12.0-15.0) g/dL Hct 33.3 L (40.0-54.0) % MCV 88 (80-98) fL MCH 28 (27-31) pg MCHC 32 (32-36) % Plt Count 218 (150-400) K/uL Med Orders - Current: Current Medications Acetaminophen (Acetaminophen 325 Mg Tab) 650 mg PO Q4H PRN PRN Reason: Pain/Fever Hydrocodone Bitart/Acetaminophen (Acetaminophen/Hydrocodone 325-5 Mg Tab) 1 tab PO Q4H PRN PRN Reason: Pain (mild 1-3) Last Admin: 12/22/20 13:05 Dose: 1 tab Documented by: Bandage/Support Products (Nozin Nasal Older Worker Specialist) 1 applic NASBOTH BID ZAINAB Stop: 12/29/20 21:01 Last Admin: 12/23/20 09:26 Dose: 1 applic Documented by: Clobetasol Propionate (Clobetasol 0.05% Crm 30 Gm Tube) 0 gm TOP BID PRN PRN Reason: Rash Cyclobenzaprine HCl (Cyclobenzaprine 10 Mg Tab) 10 mg PO Q8H PRN PRN Reason: Muscle Spasm Last Admin: 12/22/20 12:59 Dose: 10 mg Documented by: Docusate Sodium (Docusate Sodium 100 Mg Cap) 100 mg PO DAILY [facility] Last Admin: 12/23/20 09:26 Dose: 100 mg Documented by: Enoxaparin Sodium (Enoxaparin 30 Mg/0.3 Ml Syringe) 30 mg SUBCUT DAILY [facility] Last Admin: 12/23/20 09:27 Dose: 30 mg Documented by: Epinephrine HCl (Epinephrine 1 Mg/Ml Sdv) 0.3 mg IM ASDIRECTED PRN PRN Reason: Dyspnea Sodium Chloride (Normal Saline) 1,000 mls @ 125 mls/hr IV ASDIRECTED [facility] Last Admin: 12/23/20 01:54 Dose: 125 mls/hr Documented by: Ketorolac Tromethamine (Ketorolac 30 Mg/Ml Sdv) 30 mg IVPUSH Q6H [facility] Stop: 12/24/20 05:01 Last Admin: 12/23/20 10:18 Dose: 30 mg Documented by: Magnesium Hydroxide (Magnesium Hydroxide 400 Mg/5 Ml Susp 30 Ml Cup) 30 ml PO Q6H PRN PRN Reason: Stool Softener Melatonin (Melatonin 3 Mg Tab) 9 mg PO BEDTIME PRN PRN Reason: Insomnia Morphine Sulfate (Morphine 2 Mg/Ml Syringe) 1 mg IVPUSH Q1H PRN PRN Reason: Breakthrough Pain Last Admin: 12/22/20 10:53 Dose: 1 mg Documented by: Ondansetron HCl (Ondansetron 4 Mg/2 Ml Sdv) 4 mg IVPUSH Q6H PRN PRN Reason: Nausea/Vomiting Last Admin: 12/22/20 17:36 Dose: 4 mg Documented by: Oxycodone/Acetaminophen (Acetaminophen/Oxycodone 325-5 Mg Tab) 1 - 2 tab PO Q4H PRN PRN Reason: Pain Last Admin: 12/23/20 12:32 Dose: 2 tab Documented by: Rizatriptan Benzoate (Rizatriptan 10 Mg Tab.Dis) 10 mg PO ASDIRECTED PRN PRN Reason: migraine Senna (Sennosides 8.6 Mg Tab) 8.6 mg PO BEDTIME PRN PRN Reason: Stool Softener Discontinued Medications Bandage/Support Products (Nozin Nasal Older Worker Specialist) 1 applic NASBOTH BID [facility] Last Admin: 12/22/20 06:58 Dose: 3 swab Documented by: Fentanyl (Fentanyl 100 Mcg/2 Ml Sdv) Confirm Administered Dose 100 mcg .ROUTE .STK-MED ONE Stop: 12/22/20 07:16 Lactated Ringer's (Ringers, Lactated) 1,000 mls @ 75 mls/hr IV ASDIRECTED [facility] Last Admin: 12/22/20 07:27 Dose: 75 mls/hr Documented by: Cefazolin Sodium/Dextrose 2 gm (/ Premix) 50 mls @ 100 mls/hr IV ONETIME ONE Stop: 12/22/20 07:29 Last Admin: 12/22/20 07:46 Dose: 100 mls/hr Documented by: Tranexamic Acid 810 mg/ Sodium (Chloride) 58.1 mls @ 232.4 mls/hr IV ONETIME ONE Stop: 12/22/20 07:59 Last Admin: 12/22/20 08:00 Dose: 232.4 mls/hr Documented by: Lactated Ringer's (Ringers, Lactated) Confirm Administered Dose 1,000 mls @ as directed .ROUTE .STK-MED ONE Stop: 12/22/20 08:50 Cefazolin Sodium/Dextrose 1 gm (/ Premix) 50 mls @ 100 mls/hr IV Q8H [facility] Stop: 12/23/20 08:29 Last Admin: 12/23/20 07:47 Dose: 100 mls/hr Documented by: Methocarbamol (Methocarbamol 500 Mg Tab) 500 mg PO QID PRN PRN Reason: Spasms Midazolam HCl (Midazolam 1 Mg/Ml 2 Ml Sdv) Confirm Administered Dose 2 mg .ROUTE .STK-MED ONE Stop: 12/22/20 07:16 Morphine Sulfate (Morphine 2 Mg/Ml Syringe) 1 mg SUBCUT Q1H PRN PRN Reason: Breakthrough Pain Povidone Iodine (Povidone-Iodine 10% Soln 118.25 Ml Bottle) Confirm Administered Dose 1 ml .ROUTE .STK-MED ONE Stop: 12/22/20 06:49 Last Admin: 12/22/20 08:32 Dose: 30 ml Documented by: Propofol (Propofol 200 Mg/20 Ml Sdv) Confirm Administered Dose 200 mg .ROUTE .STK-MED ONE Stop: 12/22/20 07:16 Propofol (Propofol 200 Mg/20 Ml Sdv) Confirm Administered Dose 200 mg .ROUTE .STK-MED ONE Stop: 12/22/20 08:10 Propofol (Propofol 200 Mg/20 Ml Sdv) Confirm Administered Dose 200 mg .ROUTE .STK-MED ONE Stop: 12/22/20 09:20 - Exam Wound/Incisions: Healing Well, Dressing Dry and Intact, No Drainage Quality Assessment: DVT Prophylaxis General: Alert, Oriented, Cooperative, No Acute Distress Extremities: No Pedal Edema, Leg Pain (right ), Limited Range of Motion, Increased Warmth Skin: Warm, Dry, Intact Neurological: No New Focal Deficit Psy/Mental Status: Alert, Normal Affect, Normal Mood Sepsis Event Note - Evaluation Sepsis Screening Result: No Definite Risk - Focused Exam Vital Signs: Vital Signs Temp Pulse Resp BP Pulse Ox 12/23/20 07:00 96.3 F L 70 18 99/53 L 96 12/23/20 01:51 96.2 F L 78 16 107/60 98 - Problem List & Annotations (1) Status post total hip replacement, right SNOMED Code(s): 450955363263, 759986549950 Code(s): Z96.641 - PRESENCE OF RIGHT ARTIFICIAL HIP JOINT Status: Acute Current Visit: Yes - Problem List Review Problem List Initiated/Reviewed/Updated: Yes - My Orders Last 24 Hours: Active Orders 24 hr Category Date Time Status Regular Diet [DIET] Diet 12/22/20 Lunch Active Clobetasol [Clobetasol 0.05%] Med 12/22/20 11:38 Active 0 gm TOP BID PRN Cyclobenzaprine [Flexeril] Med 12/22/20 11:54 Active 10 mg PO Q8H PRN Docusate Sodium [Colace] Med 12/23/20 09:00 Active 100 mg PO DAILY EPINEPHrine [Adrenalin] Med 12/22/20 11:41 Active 0.3 mg IM ASDIRECTED PRN Enoxaparin [Lovenox] Med 12/23/20 09:00 Active 30 mg SUBCUT DAILY Melatonin Med 12/22/20 11:45 Active 9 mg PO BEDTIME PRN Nozin [ Nasal Older Worker Specialist] Med 12/22/20 21:00 Active 1 applic NASBOTH BID Rizatriptan [Maxalt DOMESTIC TRAVEL CONSULTANT] Med 12/22/20 11:47 Active 10 mg PO ASDIRECTED PRN Medication Orders Acetaminophen (Acetaminophen 325 Mg Tab) 650 mg PO Q4H PRN PRN Reason: Pain/Fever Hydrocodone Bitart/Acetaminophen (Acetaminophen/Hydrocodone 325-5 Mg Tab) 1 tab PO Q4H PRN PRN Reason: Pain (mild 1-3) Last Admin: 12/22/20 13:05 Dose: 1 tab Documented by: JULIA Bandage/Support Products (Nozin Nasal Older Worker Specialist) 1 applic NASBOTH BID [facility] Stop: 12/29/20 21:01 Last Admin: 12/23/20 09:26 Dose: 1 applic Documented by: Admin: 12/22/20 21:14 Dose: 1 applic Documented by: GEMA Clobetasol Propionate (Clobetasol 0.05% Crm 30 Gm Tube) 0 gm TOP BID PRN PRN Reason: Rash Cyclobenzaprine HCl (Cyclobenzaprine 10 Mg Tab) 10 mg PO Q8H PRN PRN Reason: Muscle Spasm Last Admin: 12/22/20 12:59 Dose: 10 mg Documented by: JULIA Docusate Sodium (Docusate Sodium 100 Mg Cap) 100 mg PO DAILY [facility] Last Admin: 12/23/20 09:26 Dose: 100 mg Documented by: LOAN Enoxaparin Sodium (Enoxaparin 30 Mg/0.3 Ml Syringe) 30 mg SUBCUT DAILY [facility] Last Admin: 12/23/20 09:27 Dose: 30 mg Documented by: LOAN Epinephrine HCl (Epinephrine 1 Mg/Ml Sdv) 0.3 mg IM ASDIRECTED PRN PRN Reason: Dyspnea Sodium Chloride (Normal Saline) 1,000 mls @ 125 mls/hr IV ASDIRECTED [facility] Last Admin: 12/23/20 01:54 Dose: 125 mls/hr Documented by: Infusion: 12/23/20 00:44 Dose: 125 mls/hr Documented by: Admin: 12/22/20 16:44 Dose: 125 mls/hr Documented by: GEMA Ketorolac Tromethamine (Ketorolac 30 Mg/Ml Sdv) 30 mg IVPUSH Q6H [facility] Stop: 12/24/20 05:01 Last Admin: 12/23/20 10:18 Dose: 30 mg Documented by: Admin: 12/23/20 04:47 Dose: 30 mg Documented by: Admin: 12/22/20 22:16 Dose: 30 mg Documented by: Admin: 12/22/20 16:37 Dose: 30 mg Documented by: Admin: 12/22/20 10:40 Dose: 30 mg Documented by: JULIA Magnesium Hydroxide (Magnesium Hydroxide 400 Mg/5 Ml Susp 30 Ml Cup) 30 ml PO Q6H PRN PRN Reason: Stool Softener Melatonin (Melatonin 3 Mg Tab) 9 mg PO BEDTIME PRN PRN Reason: Insomnia Morphine Sulfate (Morphine 2 Mg/Ml Syringe) 1 mg IVPUSH Q1H PRN PRN Reason: Breakthrough Pain Last Admin: 12/22/20 10:53 Dose: 1 mg Documented by: JULIA Ondansetron HCl (Ondansetron 4 Mg/2 Ml Sdv) 4 mg IVPUSH Q6H PRN PRN Reason: Nausea/Vomiting Last Admin: 12/22/20 17:36 Dose: 4 mg Documented by: ANITHA Oxycodone/Acetaminophen (Acetaminophen/Oxycodone 325-5 Mg Tab) 1 - 2 tab PO Q4H PRN PRN Reason: Pain Last Admin: 12/23/20 12:32 Dose: 2 tab Documented by: Admin: 12/23/20 08:09 Dose: 2 tab Documented by: Admin: 12/23/20 02:12 Dose: 2 tab Documented by: Admin: 12/22/20 21:13 Dose: 2 tab Documented by: Admin: 12/22/20 17:02 Dose: 2 tab Documented by: GEMA Rizatriptan Benzoate (Rizatriptan 10 Mg Tab.Dis) 10 mg PO ASDIRECTED PRN PRN Reason: migraine Senna (Sennosides 8.6 Mg Tab) 8.6 mg PO BEDTIME PRN PRN Reason: Stool Softener - Assessment Assessment (Free Text/Narrative):: Patient is a pleasant 45 y/o male, s/p right total hip arthroplasty, POD #1. Feli newman tolerated surgery well with no complications. Patient struggled with post- operative pain management following the spinal block wearing off yesterday afternoon, which limited ambulation abilities. Reports pain is better controlled this morning. Endorsed sore hamstrings and quadriceps muscles, muscles aggravated when laying flat in bed, but the hip joint has minimal pain. Denied numbness or tingling of the R LE. Endorsed back spasms per baseline, good relief with Flexeril. Did have one episode of nausea last night, well controlled with Zofran. Has since denied nausea/vomiting and tolerating regular diet well. Patient worked with physical therapy this morning and ambulated 120 ft with FWW. Patient also worked on bilateral LE exercises. Posterior hip pre-cautions were reviewed with patient. Patient having a difficult time lifting right leg for transfers into chair and into bed. Adaptive leg dental appliance fixer provided, but needs additional therapy to be competent in this skill. Has not yet attempted stairs. Patient worked with OT on ADLs and able to complete with minimal assistance. Patient HgB 10.8 on POD#1. Has had a few hypotensive readings, but denied weakness or dizziness. No orthostatic hypotension. Catheter was pulled the morning of POD#1. Status changed from same day surgery to inpatient, as patient requires prolonged hospital stay for additional physical therapy services to aid in R leg lifting into bed/car and to work on steps to be safe for discharge to home. Exam: R hip dressing dry and intact, no drainage nor surrounding erythema. No ecchymosis of R hip or thigh. Tibialis posterior pulse appreciated, 2+. No significant edema of R thigh, knee, nor pedal edema. Negative [place]'s. Plan: * Continue with daily physical and occupational therapy sessions to improve ambulation status, ability to lift leg into bed, and completion of stairs. * Dressing change to be performed tomorrow by orthopedic provider. * Anemia stable at this time, continue to monitor vitals and for symptoms of weakness/fatigue. Will re-check CBC if symptomatic. * Continue with current pain regimen (see orders for details). * Continue with 30 mg Lovenox qd and bilateral LE SCDs while inpatient for DVT/VTE prophylaxis. Likely to discharge home on aspirin therapy. * Anticipate discharge to home with outpatient PT orders, likely tomorrow, pending improved ability to lift R leg + safe completion of stairs.
[2020-12-23] MEDS: Rizatriptan 10 MG Tab.DIS PO PRN (16:44)
[2020-12-24] MEDS: Ketorolac 30 MG/ML SDV IVPUSH SCH (05:24)
[2020-12-24] MEDS: Enoxaparin 30 MG/0.3 ML Syringe SUBCUT SCH (08:01)
[2020-12-24] MEDS: Docusate Sodium 100 MG Cap PO SCH (08:01)
[2020-12-24] MEDS: Nozin Nasal Sanitizer NASBOTH SCH (08:04)
[2020-12-24 08:49] VITALS: BP 119/55; PULSE 88
[2020-12-24] MEDS: Rizatriptan 10 MG Tab.DIS PO PRN (10:44)
--- NOTE | 2020-12-24 11:02 | PCM.DCSUM1 ---
Discharge Summary - Hospital Course Brief History: Cynthia 45 y/o male, chronic R hip pain due to osteoarthritis and femoral acetabular impingement syndrome. Symptoms refractory to conservative management. Elected to undergo right total hip arthroplasty. Tolerated surgery well with no major complications. Diagnosis: Stroke: No Modified [place] Scale: No Symptoms at All Modified Brooks Scale Score: 0 - Discharge Data Discharge Date: 12/24/20 Discharge Disposition: Home, Self-Care 01 Condition: Good - Referral to Home Health Date of Face to Face Encounter: 12/24/20 Reason for Homebound Status: motivated to go home, fairly independent with ADLs and has support at home Primary Care Physician: Camron Miles NP - Discharge Diagnosis/Problem(s) (1) Status post total hip replacement, right SNOMED Code(s): 338716564424, [id number] ICD Code: Z96.641 - PRESENCE OF RIGHT ARTIFICIAL HIP JOINT Status: Acute Current Visit: Yes - Patient Summary/Data Operative Procedure(s) Performed: right total hip arthroplasty Consults: Consultations 12/22/20 09:38 Consult to Case Management/Director Of Transportation [CONS] Routine Comment: Physician Instructions: Discharge placement post hip surgery Service(s) to be Consulted: Case Management Special Instructions: s/p R ABILIO. Likely discharge to home with outpatient physical therapy PT Evaluation and Treatment [CONS] Routine Please Evaluate and Treat. PT Reason for Consult: Ambulation Discharge Disposition: Home w Outpatient Therapy Special Instructions: posterior hip precautions, WBAT This query below is only for informational purposes and is not editable. PT Evaluation and Treatment [CONS] Routine Please Evaluate and Treat. PT Reason for Consult: Post op Ortho Surgery Hip Pending Discharge: Yes, 2- -3 days Special Instructions: Schedule first outpatient P.T. appointment 3 - 5 days post discharge This query below is only for informational purposes and is not editable. 12/22/20 09:43 OT Evaluation and Treatment [CONS] Routine Please Evaluate and Treat. OT Reason for Consult: ADL's Special Instructions: Status post Hip Surgery This query below is only for informational purposes and is not editable. Hospital Course: Patient is a pleasant 45 y/o male, s/p right total hip arthroplasty, POD #2. Patient tolerated surgery well with no complications. Patient struggled with post-operative pain management following the spinal block wearing off, which limited ambulation abilities the evening of surgery. Pain better controlled throughout POD#1 and #2. By POD#2, pain well controlled with PO medications. Endorsed sore hamstrings and quadriceps muscles, but the hip joint has minimal pain. Denied numbness or tingling of the R LE. Endorsed back spasms per baseline, good relief with Flexeril. Did have one episode of nausea the evening of surgery, which was well controlled with Zofran. Has since denied nausea/vomiting and tolerated regular diet well. Patient worked with physical therapy daily while in the hospital; ambulated up to 300 ft with FWW, completed bilateral LE stretches and exercises, demonstrated ability to transfer from bed to chair, and improved ability to lift right leg with assistance of leg manager machine. Posterior hip pre-cautions were reviewed with patient. Patient worked with OT on ADLs and able to complete with minimal assistance. Patient HgB 10.8 on POD#1. No orthostatic hypotension, denied weakness or dizziness. Vitals over the past 24 hours within acceptable range, patient remained hemodynamically stable throughout stay. Used incentive spirometer occasionally throughout POD #1 and #2. Catheter was pulled POD#1. IV Saline locked on POD#1. Dressing change performed by orthopedic provider on POD#2. Stay was prolonged to allow for additional therapy services. Patient demonstrated improved and appropriate strength in R LE and improved ambulation plus stairs completion by POD#2. Safe for discharge to home. Good support from . Exam: R hip incision well approximated, no surrounding erythema, active drainage, nor ecchymosis. New dressing dry and intact over R hip incision. Mild warmth to touch of R hip. Edema of right thigh and knee. No significant pedal edema. Tibialis posterior pulse appreciated, 2+. Capillary refill < 2 seconds. Negative [place]'s on R LE. - Patient Instructions Diet: Usual Diet as Tolerated Activity: Apply Ice, Full Weight Bearing Driving: Do Not Drive Showering/Bathing: May Shower Wound/Incision Care: Keep Operative Site/Wound Site Clean and Dry, Change Dressing Daily Notify Provider of: Fever, Increased Pain, Swelling and Redness, Drainage, Nausea and/or Vomiting - Discharge Plan *PRESCRIPTION DRUG MONITORING PROGRAM REVIEWED*: Yes *COPY OF PRESCRIPTION DRUG MONITORING REPORT IN PATIENT GRACIE: Not Applicable Prescriptions/Med Rec: Acetaminophen/oxyCODONE [Percocet 325-5 MG] 1 - 2 each PO Q6HR PRN 7 Days #40 tab PRN Reason: Pain Home Medications: Home Meds Acetaminophen [Tylenol Extra Strength] 1,000 mg PO BID PRN 04/17/18 [History] Melatonin 10 mg PO BEDTIME PRN 04/17/18 [History] *Bpc-157 1 dose PO BID 10/23/20 [History] *Thymosin Beta 4 (Tb-500) 1 dose PO BID 10/23/20 [History] Ascorbic Acid [Vitamin C] 2,000 mg PO DAILY 10/23/20 [History] Cholecalciferol (Vitamin D3) [Vitamin D] 10,000 mg PO DAILY 10/23/20 [History] Clobetasol [Clobetasol Propionate 0.05%] 30 gm TOP BID PRN 10/23/20 [History] Collagen, Hydrolysate (Bovine) [Collagen Hydrolysate] 1 dose PO DAILY 10/23/20 [History] Cyanocobalamin (Vitamin B-12) [Vitamin B-12] 1,000 mg PO DAILY 10/23/20 [History] EPINEPHrine [Epipen] 0.3 mg IM ONETIME PRN #1 ml 10/23/20 [Rx] [place]-3/DHA/Epa/Fish Oil [[place]-3 Fish Oil 1,000 MG Sfgl] 1,000 mg PO DAILY 10/23/20 [History] Rizatriptan Benzoate [Rizatriptan] 10 mg PO ASDIRECTED PRN 10/23/20 [History] Turmeric Root Extract [Turmeric] 1,000 mg PO DAILY 10/23/20 [History] methocarbamoL [Methocarbamol] 500 mg PO QID PRN 10/23/20 [History] Acetaminophen/oxyCODONE [Percocet 325-5 MG] 1 - 2 each PO Q6HR PRN 7 Days #40 tab 12/24/20 [Rx] Oxygen Therapy Mode: Room Air Patient Handouts: Total Hip Replacement, [id number], Preventing Problems After Surgery, Preventing Constipation After Surgery Referrals: Jesus Monge MD [Physician] - 01/06/21 10:30 am (Please arrive 15 minutes early to register for your appointment.) Tyesha Yoon PT [Physical Therapist] - 12/26/20 10:30 am (PLease arrive 15 minutes early to register for your appointment.) - Discharge Summary/Plan Comment DC Time >30 min.: No Discharge Summary/Plan Comment: * Anticipate discharge to home today with outpatient physical therapy orders * Pain prescription sent to patients pharmacy; 5-325 Percocet, 1-2 tabs q6 hrs prn, #40 * Education provided to take 1 aspirin BID for DVT/VTE prophylaxis * Education provided to continue with Nozin Nasal [place] * Education provided to patient to continue stool softener while on opioid pain medications * Education provided regarding DVT/VTE and SSI warning signs and return precau tions * Dressing changed today by orthopedic provider prior to discharge * Patient to follow up with ortho clinic in 2 weeks. Encouraged to call with questions or concerns if they arise prior to scheduled apt. Patient expressed understanding of above plan. - General Info Date of Service: 12/24/20 Admission Dx/Problem (Free Text: right hip osteoarthritis and femoral acetabular impingement syndrome Functional Status: Reports: Pain Controlled, Tolerating Diet, Ambulating (with FWW ), Urinating - Review of Systems General: Reports: No Symptoms HEENT: Reports: No Symptoms Pulmonary: Reports: No Symptoms Cardiovascular: Reports: No Symptoms Gastrointestinal: Reports: No Symptoms Genitourinary: Reports: No Symptoms Musculoskeletal: Reports: Leg Pain (right ), Joint Pain (R hip ) Skin: Reports: No Symptoms Neurological: Reports: No Symptoms Psychiatric: Reports: No Symptoms - Patient Data Vitals - Most Recent: Last Vital Signs Temp 98 F 12/24/20 08:48 Pulse 88 12/24/20 08:48 Resp 19 12/24/20 08:48 BP 119/55 L 12/24/20 08:48 Pulse Ox 98 12/24/20 08:48 Weight - Most Recent: 180 lb 0.013 oz I&O - Last 24 hours: Intake & Output 12/23/20 12/24/20 12/24/20 22:59 06:59 14:59 Intake Total 3169 Output Total 500 500 Balance 2669 -500 Med Orders - Current: Current Medications Acetaminophen (Acetaminophen 325 Mg Tab) 650 mg PO Q4H PRN PRN Reason: Pain/Fever Hydrocodone Bitart/Acetaminophen (Acetaminophen/Hydrocodone 325-5 Mg Tab) 1 tab PO Q4H PRN PRN Reason: Pain (mild 1-3) Last Admin: 12/22/20 13:05 Dose: 1 tab Documented by: Bandage/Support Products (Nozin Nasal Director Of Clinical Trials) 1 applic NASBOTH BID [facility] Stop: 12/29/20 21:01 Last Admin: 12/24/20 08:04 Dose: 1 applic Documented by: Clobetasol Propionate (Clobetasol 0.05% Crm 30 Gm Tube) 0 gm TOP BID PRN PRN Reason: Rash Cyclobenzaprine HCl (Cyclobenzaprine 10 Mg Tab) 10 mg PO Q8H PRN PRN Reason: Muscle Spasm Last Admin: 12/22/20 12:59 Dose: 10 mg Documented by: Docusate Sodium (Docusate Sodium 100 Mg Cap) 100 mg PO DAILY [facility] Last Admin: 12/24/20 08:01 Dose: 100 mg Documented by: Enoxaparin Sodium (Enoxaparin 30 Mg/0.3 Ml Syringe) 30 mg SUBCUT DAILY [facility] Last Admin: 12/24/20 08:01 Dose: 30 mg Documented by: Epinephrine HCl (Epinephrine 1 Mg/Ml Sdv) 0.3 mg IM ASDIRECTED PRN PRN Reason: Dyspnea Magnesium Hydroxide (Magnesium Hydroxide 400 Mg/5 Ml Susp 30 Ml Cup) 30 ml PO Q6H PRN PRN Reason: Stool Softener Last Admin: 12/24/20 08:26 Dose: 30 ml Documented by: Melatonin (Melatonin 3 Mg Tab) 9 mg PO BEDTIME PRN PRN Reason: Insomnia Last Admin: 12/23/20 23:50 Dose: 9 mg Documented by: Morphine Sulfate (Morphine 2 Mg/Ml Syringe) 1 mg IVPUSH Q1H PRN PRN Reason: Breakthrough Pain Last Admin: 12/22/20 10:53 Dose: 1 mg Documented by: Ondansetron HCl (Ondansetron 4 Mg/2 Ml Sdv) 4 mg IVPUSH Q6H PRN PRN Reason: Nausea/Vomiting Last Admin: 12/22/20 17:36 Dose: 4 mg Documented by: Oxycodone/Acetaminophen (Acetaminophen/Oxycodone 325-5 Mg Tab) 1 - 2 tab PO Q4H PRN PRN Reason: Pain Last Admin: 12/23/20 21:28 Dose: 2 tab Documented by: Rizatriptan Benzoate (Rizatriptan 10 Mg Tab.Dis) 10 mg PO ASDIRECTED PRN PRN Reason: migraine Last Admin: 12/24/20 10:44 Dose: 10 mg Documented by: Senna (Sennosides 8.6 Mg Tab) 8.6 mg PO BEDTIME PRN PRN Reason: Stool Softener Discontinued Medications Bandage/Support Products (Nozin Nasal Director Of Clinical Trials) 1 applic NASBOTH BID [facility] Last Admin: 12/22/20 06:58 Dose: 3 swab Documented by: Fentanyl (Fentanyl 100 Mcg/2 Ml Sdv) Confirm Administered Dose 100 mcg .ROUTE .STK-MED ONE Stop: 12/22/20 07:16 Lactated Ringer's (Ringers, Lactated) 1,000 mls @ 75 [facility] Last Admin: 12/22/20 07:27 Dose: 75 mls/hr Documented by: Cefazolin Sodium/Dextrose 2 gm (/ Premix) 50 mls @ 100 mls/hr IV ONETIME ONE Stop: 12/22/20 07:29 Last Admin: 12/22/20 07:46 Dose: 100 mls/hr Documented by: Tranexamic Acid 810 mg/ Sodium (Chloride) 58.1 mls @ 232.4 mls/hr IV ONETIME ONE Stop: 12/22/20 07:59 Last Admin: 12/22/20 08:00 Dose: 232.4 mls/hr Documented by: Lactated Ringer's (Ringers, Lactated) Confirm Administered Dose 1,000 mls @ as directed .ROUTE .STK-MED ONE Stop: 12/22/20 08:50 Sodium Chloride (Normal Saline) 1,000 mls @ 125 mls[facility]hr [facility] Last Admin: 12/23/20 10:01 Dose: 125 mls/hr Documented by: Cefazolin Sodium/Dextrose 1 gm (/ Premix) 50 mls @ 100 mls/hr IV Q8H [facility] Stop: 12/23/20 08:29 Last Admin: 12/23/20 07:47 Dose: 100 mls/hr Documented by: Ketorolac Tromethamine (Ketorolac 30 Mg/Ml Sdv) 30 mg IVPUSH Q6H [facility] Stop: 12/24/20 05:01 Last Admin: 12/24/20 05:24 Dose: 30 mg Documented by: Methocarbamol (Methocarbamol 500 Mg Tab) 500 mg PO QID PRN PRN Reason: Spasms Midazolam HCl (Midazolam 1 Mg/Ml 2 Ml Sdv) Confirm Administered Dose 2 mg .ROUTE .STK-MED ONE Stop: 12/22/20 07:16 Morphine Sulfate (Morphine 2 Mg/Ml Syringe) 1 mg SUBCUT Q1H PRN PRN Reason: Breakthrough Pain Povidone Iodine (Povidone-Iodine 10% Soln 118.25 Ml Bottle) Confirm Administered Dose 1 ml .ROUTE .STK-MED ONE Stop: 12/22/20 06:49 Last Admin: 12/22/20 08:32 Dose: 30 ml Documented by: Propofol (Propofol 200 Mg/20 Ml Sdv) Confirm Administered Dose 200 mg .ROUTE .STK-MED ONE Stop: 12/22/20 07:16 Propofol (Propofol 200 Mg/20 Ml Sdv) Confirm Administered Dose 200 mg .ROUTE .STK-MED ONE Stop: 12/22/20 08:10 Propofol (Propofol 200 Mg/20 Ml Sdv) Confirm Administered Dose 200 mg .ROUTE .STK-MED ONE Stop: 12/22/20 09:20 - Exam Quality Assessment: Reports: DVT Prophylaxis General: Reports: Alert, Oriented, Cooperative, No Acute Distress Extremities: Normal Capillary Refill, Joint Swelling, Leg Pain, Limited Range of Motion, Increased Warmth
[2020-12-24] MEDS: Acetaminophen/oxyCODONE 325-5 MG Tab PO PRN (12:07)
--- NOTE | 2021-01-08 08:44 | OR ---
DATE OF PROCEDURE: 12/22/2020 SURGEON: Jesus Monge MD PREOPERATIVE DIAGNOSIS: Osteoarthritis, right hip secondary to femoral acetabular impingement. POSTOPERATIVE DIAGNOSIS: Osteoarthritis, right hip secondary to femoral acetabular impingement. PROCEDURE: Right total hip arthroplasty using Yara M/L taper stem size 9, trabecular metal cup size 60 with a 36 diameter +0 ceramic head. BRAID PATTERN SETTER: MARBELLA Little. ANESTHESIA: Spinal with sedation. INDICATIONS: Eliseo is a 45-year-old male with a history of progressive pain in both hips with the right significantly worse than the left at this point. He has had increasing difficulty with activities of daily living and range of motion including donning and doffing shoes and socks. X-rays reveal end-stage osteoarthritis with changes consistent with femoral acetabular impingement and cam deformity. Now presents for right total hip arthroplasty. Risks, benefits, and potential complications of the procedure were discussed. DESCRIPTION OF PROCEDURE: After adequate anesthesia was obtained, the patient placed in the lateral decubitus position and secured with the hip positioner. The right hip and leg were prepped and draped in a sterile fashion. Limb lengths were noted prior to incision. A longitudinal incision was made over the lateral aspect of the hip and carried down to the subcutaneous tissue. Tensor fascia was split inline with its fibers and a Charnley retractor was placed. In minimal internal rotation, short external rotators were divided off the greater trochanter and the hip capsule was then divided in a T-fashion. This allowed some greater motion and the hip was dislocated. Retractors placed about the femoral neck and femoral neck cut was made with an oscillating saw. Retractors were then placed about the acetabulum. Soft tissue was cleared from the central portion and the inner wall was delineated. The stem was then sequentially reamed to 60 mm. A 60 mm trabecular metal cup was press-fit into position and secured with a single acetabular screw with excellent purchase. Liner was tapped into position. Attention was returned to the femur. Box osteotome was used to remove the lateral femoral neck cortex. Awl was placed down the canal and the lateralizing reamer was utilized. The canal was sequentially broached to 9 mm. A trial reduction was done with -3.5 and 0 neck lengths, which provided excellent stability and 0 neck length appear to recreate limb length. The trial was removed and the final M/L taper stem was tapped into position. This had excellent fill of the proximal canal. Trial reductions again done with a -3.5 and 0 neck length with 0 neck length providing excellent stability and again appearing to recreate limb length. The trial head was removed. The hip was irrigated. The trunnion was cleaned and a ceramic head was tapped into position. This was reduced and again taken through range of motion, found to be very stable. It was irrigated with dilute Betadine solution which was left in place for 2- 1/2 minutes followed by a pulse lavage. T portion of the capsule was closed with #2 Ethibond. Piriformis and external rotators reapproximated with #2 Ethibond and the tensor fascia was then closed in a running locking fashion with 2-0 Ethibond. Skin was closed with 2-0 Vicryl and a running 3-0 Monocryl. Steri-Strips were applied. Sterile dressing was then placed. The patient tolerated the procedure very well. There were no complications and taken from the operating room in stable condition. Jesus Monge MD /[id number]
== END 2020-12-24 12:00 | disposition home or self-care (01) | DRG 470 ==
LOC: JP.SDS 06:02 → JP.MS 09:38 → JP.SDS 12-23 12:50 → JP.MS 12-23 12:51
PROVIDERS: ADMIT Specialist; ATTEND Specialist
PROC: 0SR903A Replacement of Right Hip Joint with Ceramic Synthetic Substitute, Uncemented, Open Approach (ICD-10-PCS; principal; 2020-12-23)
DX: M16.11 Unilateral primary osteoarthritis, right hip (principal); Z79.899 Other long term (current) drug therapy; Z88.0 Allergy status to penicillin; Z91.018 Allergy to other foods; Z91.030 Bee allergy status; G43.909 Migraine, unspecified, not intractable, without status migrainosus; G89.29 Other chronic pain; M54.2 Cervicalgia; Z98.890 Other specified postprocedural states; J30.9 Allergic rhinitis, unspecified
CPT/HCPCS: 36415; 72170; 72170-26; 80053; 85027; 97110-GP; 97161-GP; 97165-GO; 97530-GP; 97535-GO; 97535-GP; A9270-GY; C1713; C1776; J0690; J1650; J1885; J2250; J2270; J2405; J2704; J3010; J7030; J7120

== ENCOUNTER 2024-10-29 07:29 | Day surgery (SDC) | payer MEDICAID ==
[~2024-10-29 07:29] MED LIST changes: -Bupivacaine 0.5% 50 ML MDV ONE; -Lidocaine 0.5% 50 ML SDV ONE; -Lidocaine 1% with EPINEPHrine 1:100,000 50 ML MDV ONE; +Midazolam 1 MG/ML 2 ML SDV ONE; +Propofol 200 MG/20 ML SDV ONE; +fentaNYL 50 MCG/ML SDV ONE
[2024-10-29] MEDS: Lactated Ringers 1,000 ML IV SCH (07:54)
[2024-10-29 10:36] VITALS: BP 122/79; PULSE 60
== END 2024-10-29 10:51 | disposition home or self-care (01) ==
LOC: JP.SDS 07:29
PROVIDERS: ATTEND Surgery
DX: D12.5 Benign neoplasm of sigmoid colon (principal); K64.9 Unspecified hemorrhoids
CPT/HCPCS: 45380; 45398; 88305; J2250; J2704; J3010; J7120; 00902-QZ